=== PATIENT | male | born 1970 | race Caucasian/White ===

== ENCOUNTER 2021-04-28 15:28 | Emergency (ER) | payer BC ==
[2021-04-28] MEDS ORDERED: MORPHINE 4 MG/ML SYR ONE ×2 (15:30→15:40)
[2021-04-28] MEDS ORDERED: ONDANSETRON 4 MG/2 ML VIAL ONE (15:31)
[2021-04-28] MEDS ORDERED: NA CHLORIDE 0.9% 1,000 ML ONE (15:31)
[2021-04-28] MEDS ORDERED: CLOPIDOGREL 75 MG TABLET ONE (15:31)
[2021-04-28] MEDS ORDERED: TENECTEPLASE 50 MG/10 ML VIAL IV ONE (15:35)
[2021-04-28] MEDS ORDERED: NITROGLYCERIN 1 GM PKT TD ONE (15:37)
[2021-04-28] MEDS ORDERED: HYDROMORPHONE HCL 1 MG/ML INJ ONE (15:47)
[2021-04-28 15:48] LABS: Absolute Lymphocytes (CBC) 2.4 K/uL (0.7-4.9); Basophils % 0.5 % (0-1.3); Hematocrit 47.7 % (39.6-49.0); Lymphocytes % 22.7 % (15.3-44.8); MPV 7.7 fL (7.6-11.3); RBC Red Blood Cell Count 5.33 M/uL (4.33-5.43)
[2021-04-28] MEDS ORDERED: HEPARIN 5000 UNIT/ML 1 ML VIAL ONE (15:58)
[2021-04-28] MEDS ORDERED: HEPARIN/D5W 25,000 UNIT/500 ML BAG IV ONE (15:59)
[2021-04-28 16:03] LABS: Protime INR 1.1
--- NOTE | 2021-04-28 16:07 | ER ---
Nurse's Notes [facility] Name: Xavier Jeffrey Age: 51 yrs Sex: Male : 1970 Arrival Date: 04/28/2021 Time: 15:29 Bed 3 Private MD: Diagnosis: ST elevation (STEMI) myocardial infarction of unspecified site Presentation: 04/28 15:30 Chief complaint: EMS states: sudden onset of substernal chest pain. EMS has given 0.4 ss Nitro SL, 324 ASA and 2 mg Zofran. Pt is cool, clammy. Coronavirus screen: Client denies travel out of the [place] in the last 14 days. Ebola Screen: Patient denies exposure to infectious person. Patient denies travel to an Ebola-affected area in the 21 days before illness onset. Initial Sepsis Screen: Does the patient meet any 2 criteria? No. Patient's initial sepsis screen is negative. Does the patient have a suspected source of infection? No. Patient's initial sepsis screen is negative. Risk Assessment: Do you want to hurt yourself or someone else? Patient reports no desire to harm self or others. Onset of symptoms was April 28, 2021. Care prior to arrival: IV initiated. 20 GA, in the left antecubital area. 15:30 Method Of Arrival: EMS: [facility] 15:31 Acuity: LASHONDA 1 ss Triage Assessment: 15:30 General: Appears distressed, uncomfortable, obese, Behavior is cooperative, appropriate bp for age, agitated, anxious, restless. Pain: Complains of pain in mid-sternal area Pain currently is 8 out of 10 on a pain scale. EENT: No deficits noted. Neuro: Level of Consciousness is awake, alert, obeys commands, Oriented to person, place, time, situation, Appropriate for age. Cardiovascular: Rhythm is sinus rhythm Chest pain is described as severe, quality is pressure, is located in substernal area began 3 hours prior to arrival. Respiratory: Airway is patent Respiratory effort is even, unlabored, Respiratory pattern is regular, symmetrical. GI: No signs and/or symptoms were reported involving the gastrointestinal system. : No signs and/or symptoms were reported regarding the genitourinary system. Derm: Skin is diaphoretic, Skin is normal, Skin temperature is cool. Musculoskeletal: No deficits noted. Historical: - Allergies: 15:42 No Known Allergies; ss - Home Meds: 15:42 clonazepam Oral [Active]; ss - PMHx: 15:42 Anxiety; ss - PSHx: 15:42 None; ss - Immunization history:: Client reports having NOT received the Covid vaccine. - Social history:: Smoking status: Patient reports the use of cigarette tobacco products, smokes one-half pack cigarettes per day. Screenin:30 Abuse screen: Denies threats or abuse. Denies injuries from another. Nutritional bp screening: No deficits noted. Tuberculosis screening: No symptoms or risk factors identified. Fall Risk None identified. Assessment: 15:30 Reassessment: MD AT [facility], STEMI PATTERN NOTED ON EKG. bp 15:30 General: Appears distressed, uncomfortable, Behavior is cooperative, anxious, restless, ss Reports Sudden onset of substernal chest pain that began at 1200 today Denies fever, chills. Pain: Pain currently is 10 out of 10 on a pain scale. Neuro: Level of Consciousness is awake, alert, Oriented to person, place, time, Speech is normal, Pupils are PERRLA. Cardiovascular: Capillary refill < 3 seconds is brisk in bilateral fingers Patient's skin is warm and dry. Respiratory: Airway is patent Respiratory effort is even, unlabored, Respiratory pattern is regular, symmetrical. GI: Abdomen is round non-distended, obese, Reports nausea, Patient currently denies diarrhea, vomiting. EENT: Oral mucosa is dry. Derm: Skin is intact, is healthy with good turgor, Skin is dry, Skin is pink, warm \T\ dry. normal. 16:10 Reassessment: Report given to BIBIANA Kerr at [facility]. Awaiting [facility] for transportation. 16:18 Reassessment: [facility] AT [facility] FOR TRANSPORT TO [facility]. bp Vital Signs: 15:30 BP 168 / 105; Pulse 66; Resp 25; Pulse Ox 100% on Non-rebreather mask; Weight 99.79 kg; ss Pain 10/10; 15:37 Weight 97.52 kg (R); jl7 15:45 BP 159 / 101; Pulse 70; Resp 18; Pulse Ox 98% ; Pain 6/10; bp 16:15 BP 169 / 95; Pulse 76; Resp 11; Temp 98.2; Pulse Ox 100% ; bp Lawrence Coma Score: 15:30 Eye Response: spontaneous(4). Verbal Response: oriented(5). Motor Response: obeys ss commands(6). Total: 15. ED Course: 15:29 Patient arrived in ED. ma2 15:30 Jeb Gaspar PA is PHCP. cp 15:30 Issa Lewis MD is Attending Physician. cp 15:30 Patient has correct armband on for positive identification. Bed in low position. Call bp light in reach. Side rails up X2. 15:31 Triage completed. ss 15:32 Maintain EMS IV. Dressing intact. Good blood return noted. Site clean \T\ dry. Gauge \T\ ss site: 20 gauge in R AC. Converted IV to saline lock on right forearm. 15:35 initiated a transfer with Alejandro Wilson Rn. eb 15:35 Oxygen administration via non-rebreather mask \T\ 15L/min. ss 15:38 Inserted saline lock: 22 gauge in right hand, using aseptic technique. ss 15:42 Arm band placed on right wrist. ss 15:44 Rakesh Strong, RN is Primary Nurse. bp 15:55 administrative approval given by Alejandro Wilson Rn/ patient has been accepted to [place] [id number] Bed 18/ Dr. Jackson Teresa has accepted the patient in transfer/ report to be called through the transfer center at [phone]. 16:12 XRAY Chest (1 view) In Process Unspecified. EDMS 16:18 No provider procedures requiring assistance completed. Patient transferred, IV remains bp in place. Administered Medications: 15:30 Drug: PlaVIX (clopidogrel) 300 mg Route: PO; jl7 16:12 Follow up: Response: No adverse reaction bp 15:34 Drug: morphine 4 mg Route: IVP; Site: right antecubital; jl7 16:13 Follow up: Response: Pain is decreased bp 15:40 Drug: Tenecteplase 50 mg {Co-Signature: jl7 (Lamont Fields RN).} Route: IV; Rate: bp calculated rate; Site: right antecubital; 16:13 Follow up: IV Status: Completed infusion; IV Intake: 10ml bp 15:45 Drug: Heparin (AK-Bolus with thrombolytic) - HEParin 60 units/kg {Co-Signature: charly bp (Rebecca Bright RN).} Route: IVP; Site: right antecubital; 16:20 Follow up: Response: No adverse reaction bp 15:50 Drug: Dilaudid (HYDROmorphone) 1 mg Route: IVP; Site: right antecubital; bp 16:13 Follow up: Response: Pain is decreased bp 15:50 Drug: Nitro-Bid (nitroglycerin) Ointment 2 % 1 inches Route: Transdermal; Site: bp anterior chest wall; 15:52 Not Given (Duplicate Order): Aspirin Chewable Tablet 324 mg PO once; 81 mg tablets x 4 bp 16:09 Drug: Heparin (AK Drip) 12 units/kg/hr - (HEParin 20189 units, D5W 500 ml) bp {Co-Signature: ss (Rebecca Bright RN).} Route: IV; Rate: calculated rate; Site: right antecubital; 16:14 Follow up: IV Status: Infusion continued upon transfer bp 16:19 Drug: Dilaudid (HYDROmorphone) 0.5 mg Route: IVP; Site: right antecubital; jl7 16:20 Follow up: Response: No adverse reaction; Pain is decreased bp 16:20 CANCELLED (Duplicate Order): Dilaudid (HYDROmorphone) 0.5 mg IVP once; RASS on ADMIN: bp Combtv4, Very Agttd3, Agttd2, Rstlss1, AlertClm0, Drwsy-1, Lt Sdtn-2, Mod Sdtn-3, Dp Sdtn-4, UnArsble-5 Intake: 16:13 IV: 10ml; Total: 10ml. bp Outcome: 16:06 ER care complete, transfer ordered by . cp 16:18 Transferred by helicopter to [facility], Transfer form completed. bp 16:18 Condition: stable 16:18 Instructed on the need for transfer. 16:38 Patient left the ED. ss Signatures: Dispatcher [employer] EDMS Rebecca Bright RN RN ss Jeb Gaspar, URMILA PA cp Lamont Fields RN RN jl7 Rakesh Strong RN RN bp Issa Lewis MD MD ma2 Thais Russo RN Lamont Fields RN jl7 Corrections: (The following items were deleted from the chart) 16:46 16:15 Temp 98.2F; jl7 bp
--- NOTE | 2021-04-28 16:07 | EDPHYS ---
Physician Documentation [facility] Name: Xavier Jeffrey Age: 51 yrs Sex: Male : 1970 Arrival Date: 04/28/2021 Time: 15:29 Bed 3 Private MD: ED Physician Issa Lewis HPI: 04/28 15:52 This 51 yrs old Male presents to ER via EMS with complaints of Chest Pain. cp 15:52 The patient or guardian reports chest pain that is located primarily in the substernal cp area, epigastric area. Onset: today, approximately 1230. The pain does not radiate. Associated signs and symptoms: Pertinent positives: abdominal pain, nausea, Pertinent negatives: dizziness, headache, lower extremity pain, lower extremity swelling, syncope, vomiting. The chest pain is described as aching, constant. Duration: The patient or guardian reports a single episode, that is still ongoing, and worsening. Severity of pain: in the emergency department the pain is a 10 / 10. Historical: - Allergies: 15:42 No Known Allergies; ss - Home Meds: 15:42 clonazepam Oral [Active]; ss - PMHx: 15:42 Anxiety; ss - PSHx: 15:42 None; ss - Immunization history:: Client reports having NOT received the Covid vaccine. - Social history:: Smoking status: Patient reports the use of cigarette tobacco products, smokes one-half pack cigarettes per day. ROS: 15:56 Eyes: Negative for injury, pain, redness, and discharge. cp 15:56 Constitutional: Negative for fever. 15:56 Cardiovascular: Positive for chest pain, Negative for edema, palpitations. 15:56 Respiratory: Positive for shortness of breath, at rest. Negative for cough, wheezing. 15:56 Abdomen/GI: Positive for abdominal pain, nausea, Negative for vomiting, diarrhea, constipation. 15:56 Neuro: Negative for altered mental status, headache, weakness. 15:56 All other systems are negative. Exam: 15:57 Head/Face: Normocephalic, atraumatic. cp 15:57 Constitutional: The patient appears alert, awake, non-diaphoretic, non-toxic, well developed, well nourished, obese, in obvious pain. 15:57 Eyes: Pupils: equal, round, and reactive to light and accomodation, Extraocular movements: intact throughout, Conjunctiva: normal, no exudate, no injection, Sclera: no appreciated abnormality, Lids and lashes: appear normal, bilaterally. 15:57 ENT: External ear(s): are unremarkable, Nose: is normal, Mouth: is normal, Posterior pharynx: Airway: no evidence of obstruction, patent. 15:57 Chest/axilla: Inspection: normal, Palpation: is normal, no crepitus, no tenderness. 15:57 Cardiovascular: Rate: normal, Rhythm: regular, Edema: is not appreciated, JVD: is not appreciated. 15:57 Respiratory: the patient does not display signs of respiratory distress, Respirations: normal, no use of accessory muscles, no retractions, labored breathing, is not present, Breath sounds: are clear throughout, no decreased breath sounds, no stridor, no wheezing. 15:57 Abdomen/GI: Inspection: abdomen appears normal, Bowel sounds: active, all quadrants, Palpation: abdomen is soft and non-tender, in all quadrants. 15:57 Neuro: Orientation: to person, place \T\ time. Mentation: is normal, Motor: moves all fours, strength is normal, Sensation: is normal. Vital Signs: 15:30 BP 168 / 105; Pulse 66; Resp 25; Pulse Ox 100% on Non-rebreather mask; Weight 99.79 kg; ss Pain 10/10; 15:37 Weight 97.52 kg (R); jl7 15:45 BP 159 / 101; Pulse 70; Resp 18; Pulse Ox 98% ; Pain 6/10; bp 16:15 BP 169 / 95; Pulse 76; Resp 11; Temp 98.2; Pulse Ox 100% ; bp Juan Pablo Coma Score: 15:30 Eye Response: spontaneous(4). Verbal Response: oriented(5). Motor Response: obeys ss commands(6). Total: 15. MDM: 15:35 Physician consultation: Marino Hampton MD was contacted at 15:33, regarding patient's cp condition, after a discussion of the case, a recommendation for transfer for higher level of care is made. 15:59 The patient was given aspirin in the Emergency Department. Data reviewed: vital signs, cp nurses notes, EKG. Test interpretation: by ED physician or midlevel provider: ECG. Physician consultation: was contacted at 15:59, accepting physician will be DR Jackson Teresa. 16:06 Patient medically screened. cp 04/28 15:33 Order name: Basic Metabolic Panel [facility] 04/28 15:33 Order name: CBC with Diff [facility] 04/28 15:33 Order name: LFT's [facility] 04/28 15:33 Order name: Magnesium [facility] 04/28 15:33 Order name: NT PRO-BNP [facility] 04/28 15:33 Order name: PT-INR [facility] 04/28 15:33 Order name: Troponin (emerg Dept Use Only) [facility] 04/28 15:34 Order name: Basic Metabolic Panel EDMS 04/28 15:34 Order name: CBC with Automated Diff EDMS 04/28 15:36 Order name: Basic Metabolic Panel 04/28 15:36 Order name: CBC with Diff cp 04/28 15:36 Order name: XRAY Chest (1 view) 04/28 15:33 Order name: EKG; Complete Time: 15:34 [facility] 04/28 15:33 Order name: Cardiac monitoring; Complete Time: 15:38 [facility] 04/28 15:33 Order name: EKG - Nurse/Tech; Complete Time: 15:38 [facility] 04/28 15:33 Order name: IV Saline Lock; Complete Time: 15:38 [facility] 04/28 15:33 Order name: Labs collected and sent; Complete Time: 15:38 [facility] 04/28 15:33 Order name: O2 Per Protocol; Complete Time: 15:38 [facility] 04/28 15:33 Order name: O2 Sat Monitoring; Complete Time: 15:38 [facility] 04/28 15:36 Order name: Cardiac monitoring; Complete Time: 15:37 04/28 15:36 Order name: EKG - Nurse/Tech; Complete Time: 15:37 04/28 15:36 Order name: IV Saline Lock; Complete Time: 15:37 04/28 15:36 Order name: Labs collected and sent; Complete Time: 15:37 04/28 15:36 Order name: O2 Per Protocol; Complete Time: 15:38 04/28 15:36 Order name: O2 Sat Monitoring; Complete Time: 15:38 cp Administered Medications: 15:30 Drug: PlaVIX (clopidogrel) 300 mg Route: PO; jl7 16:12 Follow up: Response: No adverse reaction bp 15:34 Drug: morphine 4 mg Route: IVP; Site: right antecubital; jl7 16:13 Follow up: Response: Pain is decreased bp 15:40 Drug: Tenecteplase 50 mg {Co-Signature: jl7 (Lamont Fields RN).} Route: IV; Rate: bp calculated rate; Site: right antecubital; 16:13 Follow up: IV Status: Completed infusion; IV Intake: 10ml bp 15:45 Drug: Heparin (SC-Bolus with thrombolytic) - HEParin 60 units/kg {Co-Signature: ss bp (Rebecca Bright RN).} Route: IVP; Site: right antecubital; 16:20 Follow up: Response: No adverse reaction bp 15:50 Drug: Dilaudid (HYDROmorphone) 1 mg Route: IVP; Site: right antecubital; bp 16:13 Follow up: Response: Pain is decreased bp 15:50 Drug: Nitro-Bid (nitroglycerin) Ointment 2 % 1 inches Route: Transdermal; Site: bp anterior chest wall; 15:52 Not Given (Duplicate Order): Aspirin Chewable Tablet 324 mg PO once; 81 mg tablets x 4 bp 16:09 Drug: Heparin (SC Drip) 12 units/kg/hr - (HEParin 09188 units, D5W 500 ml) bp {Co-Signature: ss (Rebecca Bright RN).} Route: IV; Rate: calculated rate; Site: right antecubital; 16:14 Follow up: IV Status: Infusion continued upon transfer bp 16:19 Drug: Dilaudid (HYDROmorphone) 0.5 mg Route: IVP; Site: right antecubital; jl7 16:20 Follow up: Response: No adverse reaction; Pain is decreased bp 16:20 CANCELLED (Duplicate Order): Dilaudid (HYDROmorphone) 0.5 mg IVP once; RASS on ADMIN: bp Combtv4, Very Agttd3, Agttd2, Rstlss1, AlertClm0, Drwsy-1, Lt Sdtn-2, Mod Sdtn-3, Dp Sdtn-4, UnArsble-5 Disposition: 16:22 Critical Care:. cp Disposition Summary: 04/28/21 16:06 Transfer Ordered Transfer Location: [facility] cp Reason: Higher level of care cp Condition: Serious cp Problem: new cp Symptoms: have improved cp Accepting Physician: DR Jackson Teresa(04/28/21 16:38) ss Diagnosis - ST elevation (STEMI) myocardial infarction of unspecified site cp Discharge Instructions: - Discharge Summary Sheet jl7 Forms: - Medication Reconciliation Form cp - SBAR form jl7 Critical care time excluding procedures: 16:22 Critical care time: Bedside Care: 10 minutes, Consultation: 20 minutes, Family cp Intervention: 5 minutes. Total time: 35 minutes Addendum: 05/03/2021 15:37 Co-signature as Attending Physician, Issa Lewis MD PA/[employer] MACHINE SETTER's history reviewed, m a2 patient interviewed, and examined. I agree with assessment and care plan and confirm the diagnosis (es) above. Signatures: Dispatcher [employer] EDMS Rebecca Bright RN RN ss Jeb Gaspar PA PA cp Martinez, Maria 5 Lamont Fields RN RN jl7 Rakesh Strong RN RN bp Alzahri, Mohammad, MD MD ar2 Rebecca Bright RN Lamont Fields RN jl7 Corrections: (The following items were deleted from the chart) 04/28 15:46 15:34 Chest Single View+RAD.RAD.BRZ ordered. EDAZ EDMS 16:20 16:19 Dilaudid (HYDROmorphone) 0.5 mg IVP once; RASS on ADMIN: Combtv4, Very Agttd3, bp Agttd2, Rstlss1, AlertClm0, Drwsy-1, Lt Sdtn-2, Mod Sdtn-3, Dp Sdtn-4, UnArsble-5 ordered. bp 16:38 16:06 DR Jackson Teresa cp ss
[2021-04-28 16:08] LABS: ALT/SGPT 38 U/L (12-78); AST/SGOT 17 U/L (15-37); Albumin 3.7 g/dL (3.4-5.0); Alkaline Phosphatase 104 U/L (45-117); BUN Blood Urea Nitrogen 15 mg/dL (7-18); Bicarbonate 28 mmol/L (21-32); Bilirubin Direct < 0.1 mg/dL (0-0.2); Bilirubin Total 0.3 mg/dL (0.2-1.0); Glucose Level 159 mg/dL (74-106); Magnesium 2.2 mg/dL (1.8-2.4); NT PRO-BNP 34 pg/mL (<125); Potassium 3.5 mmol/L (3.5-5.1); Protein, Total 7.7 g/dL (6.4-8.2); Sodium Level 142 mmol/L (136-145); Troponin (Emerg Dept Use Only) 0.07 ng/mL (0.0-0.045)
[2021-04-28] MEDS ORDERED: HYDROMORPHONE HCL 0.5 MG/0.5 ML INJ ONE (16:15)
--- NOTE | 2021-04-28 16:21 | RAD REPORT ---
EXAM DESCRIPTION: RAD - Chest Single View - 04/28/2021 4:12 pm CLINICAL HISTORY: CHEST PAIN COMPARISON: Chest Single View dated 02/23/2016 FINDINGS: Lines: None. Lungs: Increased prominence of the pulmonary interstitium. Pleural: No significant pleural effusions or pneumothorax. Cardiac: Mild cardiomegaly. Bones: No acute fractures. Other: IMPRESSION: Increased prominence of the pulmonary interstitium which may reflect vascular congestion .
[2021-04-28 16:47] VITALS: BP 159/101; O2SAT 98
[2021-04-28 16:49] VITALS: TEMP 98.2
--- NOTE | 2021-05-01 18:33 | EKG ---
Test Date: 2021-04-28 Test Time: 15:27:33 Motor Vehicle Escort Driver: MEASUREMENT RESULTS: Intervals: Rate: 61 AK: 120 QRSD: 86 QT: 392 QTc: 394 [place]: P: 37 AK: 120 QRS: 66 T: 92 INTERPRETIVE STATEMENTS: Normal sinus rhythm with sinus arrhythmia ST elevation, consider inferolateral injury or acute infarct ACUTE VT / STEMI Consider right ventricular involvement in acute inferior infarct Abnormal ECG Compared to ECG 02/23/2016 12:06:36 ST (T wave) deviation now present Myocardial infarct finding now present Myocardial infarct finding now present Electronically Signed On 05-01-21 18:24:31 OPTICAL WORKER by Glenroy Steen
== END 2021-04-28 16:38 | disposition short-term general hospital (02) ==
LOC: ER 15:28
DX: I21.3 ST elevation (STEMI) myocardial infarction of unspecified site (principal); F41.9 Anxiety disorder, unspecified; F17.210 Nicotine dependence, cigarettes, uncomplicated
CPT/HCPCS: 96365; 92977; 93005; 85025; 80048; 36415; 83735; 85610; 80076; 84484; 83880; 71045; 96375; 99291; U0003; J1644 ×2; J3101; J1170 ×2; J7030; J2405

== ENCOUNTER 2024-05-02 13:26 | Emergency (ER) | payer OTHER ==
[2024-05-02] MEDS ORDERED: HYDROCODONE/APAP 10/325 TAB ONE (13:54)
--- NOTE | 2024-05-02 14:46 | RAD REPORT ---
Exam:Foot Left 3 View CLINICAL HISTORY: Left foot pain FINDINGS: Lucency involves the proximal aspect of the second metatarsal seen only on one view. This is equivoca l for fracture. Clinical correlation is needed seated patient has point tenderness in this region to suggest this. No dislocation.
--- NOTE | 2024-05-02 14:46 | RAD REPORT ---
Exam:Ankle Left 3 View HISTORY: left ankle pain FINDINGS: No fracture or dislocation is seen
--- NOTE | 2024-05-02 15:20 | EDPHYS ---
Physician Documentation [facility] Name: Xavier Jeffrey Age: 54 yrs Sex: Male : 1970 Arrival Date: 05/02/2024 Time: 13:26 Bed 18 Private MD: ED Physician Carlyle Mata HPI: 05/02 15:17 This 54 yrs old Male presents to ER via Wheelchair with complaints of Foot Injury - kb Left. 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 Pain aggravated by movement, weight bearing. Abrasion to left upper arm as well, but no bony tenderness or pain with rom. . Historical: - Allergies: 13:53 No Known Allergies; tl4 - PMHx: 13:53 Anxiety; Myocardial infarction; Hypertensive disorder; tl4 - PSHx: 13:53 Cardiac stents; tl4 - Immunization history:: Adult Immunizations unknown. - Infectious Disease History:: Denies. - Social history:: Smoking status: Patient/guardian denies using tobacco, the patient reports quitting approximately 3 years ago. ROS: 15:14 Constitutional: As per HPI kb Exam: 15:14 Constitutional: This is a well developed, well nourished patient who is awake, alert, kb and in no acute distress. Head/Face: Normocephalic, atraumatic. ENT: Moist Mucous membranes Cardiovascular: Regular rate Respiratory: Respirations even and unlabored. No increased work of breathing. Talking in full sentences Skin: Warm, dry with normal turgor. Normal color. Neuro: Awake and alert, GCS 15, oriented to person, place, time, and situation. 15:14 Musculoskeletal/extremity: Extremities: grossly normal except: noted in the dorsum of left foot: abrasion, contusion, ecchymosis, pain, swelling, tenderness, ROM: limited active range of motion due to pain, Circulation is intact in all extremities. Sensation intact. Weight bearing: able to fully bear weight, 15:16 Musculoskeletal/extremity: Extremities: noted in the left upper arm: abrasion, kb Vital Signs: 13:51 BP 106 / 70; Pulse 78; Resp 18; Temp 98.2(O); Pulse Ox 95% on R/A; Weight 117.93 kg; tl4 Height 5 ft. 8 in. ; Pain 10/10; 15:47 BP 110 / 80; Pulse 80; Resp 17 S; Pulse Ox 99% on R/A; kc6 13:51 Body Mass Index 39.53 (117.93 kg, 172.72 cm) tl4 13:51 Pain Scale: Adult tl4 MDM: 13:30 Medical Screening Exam initiated kb 15:07 Data reviewed: vital signs, nurses notes. 15:16 Differential diagnosis: closed fracture, contusion, abrasion. Counseling: I had a kb detailed discussion with the patient and/or guardian regarding the historical points, exam findings, and any diagnostic results supporting the discharge/admit diagnosis, radiology results, the need for outpatient follow up, a orthopedic surgeon, to return to the emergency department if symptoms worsen or persist or if there are any questions or concerns that arise at home. 15:17 Independent interpretation of the following test(s) in the Emergency Department X-Ray: kb My interpretation is fracture proximal second metatarsal. 05/02 13:44 Order name: Foot Left 3 View XRAY; Complete Time: 14:49 kb 05/02 13:44 Order name: Ankle Left 3 View XRAY; Complete Time: 14:49 kb 05/02 15:10 Order name: Short Leg Splint; Complete Time: 15:20 kb 05/02 15:10 Order name: Crutches; Complete Time: 15:20 kb 05/02 15:14 Order name: Ice pack; Complete Time: 15:19 kb Administered Medications: 14:18 Drug: Welch PO 10 mg-325 mg 1 tabs PO once Route: PO; 6 15:19 Follow up: Response: No adverse reaction; RASS: Alert and Calm (0) kc6 Disposition: 17:20 Co-signature as Attending Physician, Carlyle Mata MD I reviewed the patient's care rt provided by the Advanced Practice Provider and agree with the diagnosis and treatment plan. Disposition Summary: 05/02/24 15:19 Discharge Ordered Notes: Location: Home Condition: Stable kb Diagnosis - Fracture of proximal second metatarsal, left kb - Contusion of left foot kb - Abrasion of left upper arm kb Followup: kb - With: Emergency Department - When: As needed - Reason: Worsening of condition Followup: kb - With: Private Physician - When: 2 - 3 days - Reason: Recheck today's complaints, Continuance of care, Re-evaluation by your physician Discharge Instructions: - Discharge Summary Sheet kb - Metatarsal Fracture kb - Abrasion, [id number] kb - Foot Contusion, [id number] kb Forms: - Medication Reconciliation Form kb - Antibiotic Education kb - Prescription Opioid Use kb - Patient Portal Instructions kb - Leadership Thank You Letter kb Prescriptions: - Tramadol 50 mg Oral Tablet - take 1 tablet ORAL route every 8 hours as needed; 12 tablet; Refills: 0, kb Product Selection Permitted - orphenadrine citrate 100 mg Oral Tablet Sustained Release - take 1 tablet ORAL route 2 times per day As needed; 20 tablet; Refills: 0, kb Product Selection Permitted Signatures: Dispatcher [employer] EDMS Heidy Martinez FNP-C FNP-Brigida Rodrigues, RN RN kc6 Carlyle Mata MD MD rt Arvind Baumann RN RN tl4 Corrections: (The following items were deleted from the chart) 13:44 13:44 Foot Left 3 View+RAD.RAD.BRZ ordered. EDMS EDMS 13:44 13:44 Ankle Left 3 View+RAD.RAD.BRZ ordered. EDMS EDMS
--- NOTE | 2024-05-02 15:20 | ER ---
Nurse's Notes [facility] Name: Xavier Jeffrey Age: 54 yrs Sex: Male : 1970 Arrival Date: 05/02/2024 Time: 13:26 Bed 18 Private MD: Diagnosis: Fracture of proximal second metatarsal, left;Contusion of left foot;Abrasion of left upper arm Presentation: 05/02 13:51 Chief complaint: Patient states: Pt states a trailer with a boat dropped approx 18 tl4 inches onto his left foot/ankle. Pt has minimal weight bearing. Coronavirus screen: At this time, the client does not indicate any symptoms associated with coronavirus-19. Ebola Screen: No symptoms or risks identified at this time. Initial Sepsis Screen: Does the patient meet any 2 criteria? No. Patient's initial sepsis screen is negative. Does the patient have a suspected source of infection? No. Patient's initial sepsis screen is negative. Risk Assessment: Do you want to hurt yourself or someone else? Patient reports no desire to harm self or others. Onset of symptoms was May 02, 2024 at 13:00. 13:51 Method Of Arrival: Wheelchair tl4 13:51 Acuity: LASHONDA 3 tl4 Triage Assessment: 13:54 General: Appears uncomfortable, Behavior is calm, cooperative. Pain: Complains of pain tl4 in left leg. EENT: No signs and/or symptoms were reported regarding the EENT system. Neuro: Level of Consciousness is awake, alert, obeys commands, Oriented to person, place, time, situation. Respiratory: Airway is patent Respiratory effort is even, unlabored, Respiratory pattern is regular, symmetrical. GI: No signs and/or symptoms were reported involving the gastrointestinal system. : No signs and/or symptoms were reported regarding the genitourinary system. Derm: No signs and/or symptoms reported regarding the dermatologic system. Musculoskeletal: Swelling present in dorsum of left foot. Injury Description: Crush injury. Historical: - Allergies: 13:53 No Known Allergies; tl4 - PMHx: 13:53 Anxiety; Myocardial infarction; Hypertensive disorder; tl4 - PSHx: 13:53 Cardiac stents; tl4 - Immunization history:: Adult Immunizations unknown. - Infectious Disease History:: Denies. - Social history:: Smoking status: Patient/guardian denies using tobacco, the patient reports quitting approximately 3 years ago. Screenin:21 [facility] ED Fall Risk Assessment (Adult) History of falling in the last 3 months, kc6 including since admission No falls in past 3 months (0 pts) Confusion or Disorientation No (0 pts) Intoxicated or Sedated No (0 pts) Impaired Gait No (0 pts) Mobility Assist Device Used No (0 pt) Altered Elimination No (0 pt) Score/Fall Risk Level 0 - 2 = Low Risk Oriented to surroundings. Abuse screen: Denies threats or abuse. Denies injuries from another. Nutritional screening: No deficits noted. Tuberculosis screening: No symptoms or risk factors identified. Assessment: 14:21 General: Appears in no apparent distress. comfortable, obese, well groomed, well kc6 developed, Behavior is calm, cooperative, appropriate for age. Pain: Complains of pain in left foot. Neuro: Level of Consciousness is awake, alert, obeys commands, Oriented to person, place, time, situation, Appropriate for age. Cardiovascular: Capillary refill < 3 seconds. Respiratory: Airway is patent Trachea midline Respiratory effort is even, unlabored, Respiratory pattern is regular, symmetrical. GI: No signs and/or symptoms were reported involving the gastrointestinal system. : No signs and/or symptoms were reported regarding the genitourinary system. EENT: No signs and/or symptoms were reported regarding the EENT system. Derm: Skin is intact, is healthy with good turgor, Skin is normal, Bruising that is dark purple, on dorsum of left foot. Musculoskeletal: Capillary refill < 3 seconds, Range of motion: limited in left ankle Swelling present in dorsum of left foot. 15:19 Reassessment: Patient appears in no apparent distress at this time. No changes from kc6 previously documented assessment. Patient and/or family updated on plan of care and expected duration. Pain level reassessed. Patient is alert, oriented x 3, equal unlabored respirations, skin warm/dry/pink. Vital Signs: 13:51 BP 106 / 70; Pulse 78; Resp 18; Temp 98.2(O); Pulse Ox 95% on R/A; Weight 117.93 kg; tl4 Height 5 ft. 8 in. ; Pain 10/10; 15:47 BP 110 / 80; Pulse 80; Resp 17 S; Pulse Ox 99% on R/A; kc6 13:51 Body Mass Index 39.53 (117.93 kg, 172.72 cm) tl4 13:51 Pain Scale: Adult tl4 ED Course: 13:29 Patient arrived in ED. ra3 13:30 [facility] kb 13:30 Carlyle Mata MD is Attending Physician. kb 13:38 Brigida Hughes, RN is Primary Nurse. kc6 13:53 Triage completed. tl4 13:55 Arm band placed on right wrist. tl4 14:20 Patient has correct armband on for positive identification. Bed in low position. Call kc6 light in reach. Side rails up X 1. Pulse ox on. NIBP on. Door closed. Noise minimized. Lights dimmed. Warm blanket given. Pillow given. 14:20 Patient maintains SpO2 saturation greater than 95% on room air. kc6 14:23 Foot Left 3 View XRAY In Process Unspecified. EDMS 14:23 Ankle Left 3 View XRAY In Process Unspecified. EDMS 15:30 Crutch training done. Orthoglass splint: Posterior short lleg splint applied on left em1 leg. 15:48 No provider procedures requiring assistance completed. Patient did not have IV access kc6 during this emergency room visit. Administered Medications: 14:18 Drug: Holcomb PO 10 mg-325 mg 1 tabs PO once Route: PO; kc6 15:19 Follow up: Response: No adverse reaction; RASS: Alert and Calm (0) kc6 Medication: 15:48 VIS not applicable for this client. kc6 Outcome: 15:19 Discharge ordered by . kb 15:48 Discharged to home via wheelchair, with friend, kc6 15:48 Condition: good 15:48 Discharge instructions given to patient, Instructed on discharge instructions, follow up and referral plans. no drinking with medication, no driving heavy equipment, medication usage, crutch walking, Demonstrated understanding of instructions, follow-up care, medications, crutch walking, splint care, Prescriptions given X 2, 15:48 Patient left the ED. kc6 Signatures: Dispatcher [employer] EDMS Heidy Martinez FNP-C BUILDING OPERATOR-Gabe Kruger em1 Brigida Hughes, RN RN kc6 Logdahl, Arvind, RN RN tl4 Dumont, [place] ra3
[2024-05-02 15:52] VITALS: TEMP 98.2
[2024-05-02 15:53] VITALS: BP 110/80; O2SAT 99
== END 2024-05-02 15:48 | disposition home or self-care (01) ==
LOC: ER 13:26
DX: S92.322A Displaced fracture of second metatarsal bone, left foot, initial encounter for closed fracture (principal); S40.812A Abrasion of left upper arm, initial encounter; I10 Essential (primary) hypertension; I25.2 Old myocardial infarction; Z95.818 Presence of other cardiac implants and grafts
CPT/HCPCS: 99284